=== PATIENT | female | born 1990 | race Caucasian/White ===

== ENCOUNTER 2023-07-03 11:08 | Emergency (ER) | payer OTHER ==
[2023-07-03 11:28] VITALS: TEMP 98.9
--- NOTE | 2023-07-03 11:35 | ERPHSYRPT ---
- History of Present Illness Time Seen by Provider: 07/03/23 11:34 Source: patient Exam Limitations: no limitations Patient Subjective Stated Complaint: SEVERE RIGHT SIDE ABDOMINAL PAIN, MID BACK / FLANK PAIN. Triage Nursing Assessment: Patient ambulated back to ER per self. Patient doubled over in pain to right side abdomen, mid to lower back and right side. Patient rating pain 10/10 at this time. Patient describes pain as constant. Patient unable to rest or get comfortable in bed and presents with moaning and facial grimacing. Patient reports that she starting having pain early this morning and thought she had a UTI so she took 1 dose of Bactrim DS around 0900 then vomitted around 1030. Patient reports that the pain has gotten worse. Gil alexandreablue reports that she feels like she needs to urinate but isnt having much output. Physician History: This is a 32-year-old white female patient who presents to the emergency department by private vehicle and is a patient of Dr. Bello with a complaint of severe right flank pain. Patient noticed right upper leg and right groin pain yesterday. This morning the pain was more localized in the right flank area. Patient had a prescription for Bactrim DS called in this morning and she did take a single dose of this medication. However, the right flank pain became significantly worse. Patient arrives to the emergency department holding her right flank and doubled over. She denies shortness of breath. She denies chest pain. Patient has a history of bradycardia. Patient wants to hold off on any narcotic pain medicine but will agree to Toradol. She has never had a history of renal or ureteral stones per her report. She is at mid cycle on her menstrual period Timing/Duration: yesterday, worse (Morning) Activites at Onset: none Quality: sharpness, stabbing Onset Location: right flank Pain Radiation: groin Severity of Pain-Max: moderate (Right) Severity of Pain-Current: moderate Sexual intercourse history: non-contributory Modifying Factors: Improves With: position (Patient is doubled over) Associated Symptoms: lower back pain (Right flank pain) Allergies/Adverse Reactions: No Known Drug Allergies Allergy (Unverified 07/03/23 11:14) Home Medications: Smz/Tmp Ds Tablet [Bactrim Ds Tablet] 1 tab PO BID 07/03/23 [History] Hx Influenza Vaccination/Date Given: Yes Travel Risk - International Travel Have you traveled outside of the country in past 3 weeks: No - Emerging Infectious Disease Are you exhibiting symptoms associated with any current EIDs: No - Review of Systems Constitutional: No Symptoms Eyes: No Symptoms Ears, Nose, & Throat: No Symptoms Respiratory: No Symptoms Cardiac: No Symptoms Abdominal/Gastrointestinal: No Symptoms Genitourinary Symptoms: Flank Pain (Right flank pain) Musculoskeletal: No Symptoms Skin: No Symptoms Neurological: No Symptoms Psychological: No Symptoms Endocrine: No Symptoms Hematologic/Lymphatic: No Symptoms Immunological/Allergic: No Symptoms All Other Systems: Reviewed and Negative - Past Medical History Pertinent Past Medical History: Yes Neurological History: No Pertinent History ENT History: No Pertinent History Cardiac History: Other Respiratory History: No Pertinent History Endocrine Medical History: No Pertinent History Musculoskeletal History: No Pertinent History GI Medical History: No Pertinent History History: No Pertinent History Psycho-Social History: No Pertinent History Female Reproductive Disorders: No Pertinent History Other Medical History: BRADYCARDIA - Past Surgical History Past Surgical History: Yes Neuro Surgical History: No Pertinent History Cardiac: No Pertinent History Respiratory: No Pertinent History Gastrointestinal: No Pertinent History Genitourinary: No Pertinent History Musculoskeletal: No Pertinent History Female Surgical History: Section Other Surgical History: C SECTION X 2 - 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 2ND C SECTION - Female History Hx Now: No - Social History Smoking Status: Former smoker Drug Use: none - Nursing Vital Signs Nursing Vital Signs: Initial Vital Signs Pulse Rate 46 L 07/03/23 11:15 Respiratory Rate 14 07/03/23 11:15 Blood Pressure 93/49 07/03/23 11:15 O2 Sat by Pulse Oximetry 93 L 07/03/23 11:15 Pain Scale Pain Intensity 2 - Physical Exam General Appearance: moderate distress, alert, anxiety, thin Eye Exam: PERRL/EOMI, eyes nml inspection Ears, Nose, Throat Exam: normal ENT inspection, moist mucous membranes Neck Exam: normal inspection, non-tender, supple, full range of motion Respiratory Exam: normal breath sounds, lungs clear, airway intact, No chest tenderness, No respiratory distress Cardiovascular Exam: regular rate/rhythm, normal heart sounds, normal peripheral pulses Gastrointestinal/Abdomen Exam: soft, normal bowel sounds, No tenderness Pelvic Exam: not done Rectal Exam: not done Back Exam: normal inspection, normal range of motion, CVA tenderness (Right side), No vertebral tenderness Extremity Exam: normal inspection, normal range of motion, pelvis stable Neurologic Exam: alert, oriented x 3, cooperative, sheet metal erector II-XII nml as tested, nml cerebellar function, nml station & gait, sensation nml Skin Exam: normal color, warm, dry Lymphatic Exam: No adenopathy SpO2 Interpretation: normal SpO2: 100 O2 Delivery: Room Air - Course Nursing assessment & vital signs reviewed: Yes Ordered Tests: Active Orders 24 hr Category Date Time Status IV Insertion STAT Care 07/03/23 11:35 Active ABDOMEN AND PELVIS W/0 CONTRAS [CT] Stat Exams 07/03/23 11:35 Completed AMYLASE Stat Lab 07/03/23 11:51 Completed CBC W DIFF Stat Lab 07/03/23 11:51 Completed CMP Stat Lab 07/03/23 11:51 Completed HCG QUALITATIVE, SERUM Stat Lab 07/03/23 11:51 Completed LIPASE Stat Lab 07/03/23 11:51 Completed UA W/RFX UR CULTURE Stat Lab 07/03/23 11:51 Completed Medication Summary Discontinued Medications Generic Name Dose Route Start Last Admin Trade Name Willisq PRN Reason Stop Dose Admin Sodium Chloride 1,000 mls @ 999 mls/hr 07/03/23 11:35 07/03/23 12:56 Sodium Chloride 0.9% 1000 Ml IV 07/03/23 12:35 Infused .Q1H1M STA Infusion Sodium Chloride Confirm 07/03/23 11:37 Sodium Chloride 0.9% 1000 Ml Administered 07/03/23 11:38 Dose 1,000 mls @ ud .ROUTE .STK-MED ONE Ketorolac Tromethamine 30 mg 07/03/23 11:35 07/03/23 11:39 Ketorolac Tromethamine 30 Mg/Ml Inj IV 07/03/23 11:36 30 mg STAT ONE Administration Ketorolac Tromethamine Confirm 07/03/23 11:37 Ketorolac Tromethamine 30 Mg/Ml Inj Administered 07/03/23 11:38 Dose 30 mg .ROUTE .STK-MED ONE Ondansetron HCl 4 mg 07/03/23 11:35 07/03/23 11:39 Ondansetron Hcl 4 Mg/2 Ml Vial IV 07/03/23 11:36 4 mg STAT ONE Administration Ondansetron HCl Confirm 07/03/23 11:37 Ondansetron Hcl 4 Mg/2 Ml Vial Administered 07/03/23 11:38 Dose 4 mg .ROUTE .STK-MED ONE Tamsulosin HCl 0.4 mg 07/03/23 12:56 Tamsulosin Hcl 0.4 Mg Cap PO 07/03/23 12:57 STAT ONE Tamsulosin HCl Confirm 07/03/23 13:04 Tamsulosin Hcl 0.4 Mg Cap Administered 07/03/23 13:05 Dose 0.4 mg .ROUTE .STK-MED ONE Lab/Rad Data: Laboratory Result Diagrams 07/03/23 11:51 07/03/23 11:51 Laboratory Results 07/03/23 07/03/23 07/03/23 Range/Units 11:51 11:51 11:51 WBC 9.1 (4.0-10.5) x10^3/uL RBC 4.34 (4.1-5.4) x10^6/uL Hgb 13.8 (12.0-16.0) g/dL Hct 40.9 (35-47) % MCV 94.2 (78-100) fL MCH 31.8 (26-32) pg MCHC 33.7 (32-36) g/dL RDW 11.9 (11.5-14.0) % Plt Count 247 (150-450) x10^3/uL MPV 10.3 (7.5-11.0) fL Gran % 76.0 H (36.0-66.0) % Immature Gran % (Auto) 0.3 (0.00-0.4) % Nucleat RBC Rel Count 0.0 (0.00-0.1) % Eos # (Auto) 0.02 (0-0.5) x10^3/uL Immature Gran # (Auto) 0.03 (0.00-0.03) x10^3u/L Absolute Lymphs (auto) 1.66 (1.0-4.6) x10^3/uL Absolute Monos (auto) 0.45 (0.0-1.3) x10^3/uL Absolute Nucleated RBC 0.00 (0.00-0.01) x10^3u/L Lymphocytes % 18.3 L (24.0-44.0) % Monocytes % 5.0 (0.0-12.0) % Eosinophils % 0.2 (0.00-5.0) % Basophils % 0.2 (0.0-0.4) % Absolute Granulocytes 6.91 H (1.4-6.9) x10^3/uL Basophils # 0.02 (0-0.4) x10^3/uL Sodium 139 (135-145) mmol/L Potassium 3.6 (3.5-5.1) mmol/L Chloride 104 (98-107) mmol/L Carbon Dioxide 27 (22-30) mmol/L Anion Gap 11.2 (5-15) MEQ/L BUN 12 (7-17) mg/dL Creatinine 0.75 (0.52-1.04) mg/dL Estimated GFR 108.4 ML/MIN Glucose 100 (74-106) mg/dL Calcium 9.3 (8.4-10.2) mg/dL Total Bilirubin 0.60 (0.2-1.3) mg/dL AST 27 (14-36) U/L ALT 11 (0-35) U/L Alkaline Phosphatase 45 (38-126) U/L Serum Total Protein 7.2 (6.3-8.2) g/dL Albumin 4.4 (3.5-5.0) g/dL Amylase 63 (30-110) U/L Lipase 56 (23-300) U/L Serum HCG, Qual NEGATIVE (NEGATIVE) Urine Color (Yellow) Urine Appearance (Clear) Urine pH (4.6-8.0) Ur Specific [place] (1.005-1.030) Urine Protein (Negative) Urine Glucose (UA) (Negative) mg/dL Urine Ketones (Negative) Urine Blood (Negative) Urine Nitrite (Negative) Urine Bilirubin (Negative) Urine Urobilinogen (0.2) mg/dL Ur Leukocyte Esterase (Negative) U Hyaline Cast (Auto) (0-2) /LPF Urine Microscopic RBC (0-5) /HPF Urine Microscopic WBC (0-5) /HPF Ur Epithelial Cells (None Seen) /HPF Urine Bacteria (None Seen) /HPF Urine Culture Reflexed (NO) 07/03/23 Range/Units 11:51 WBC (4.0-10.5) x10^3/uL RBC (4.1-5.4) x10^6/uL Hgb (12.0-16.0) g/dL Hct (35-47) % MCV (78-100) fL MCH (26-32) pg MCHC (32-36) g/dL RDW (11.5-14.0) % Plt Count (150-450) x10^3/uL MPV (7.5-11.0) fL Gran % (36.0-66.0) % Immature Gran % (Auto) (0.00-0.4) % Nucleat RBC Rel Count (0.00-0.1) % Eos # (Auto) (0-0.5) x10^3/uL Immature Gran # (Auto) (0.00-0.03) x10^3u/L Absolute Lymphs (auto) (1.0-4.6) x10^3/uL Absolute Monos (auto) (0.0-1.3) x10^3/uL Absolute Nucleated RBC (0.00-0.01) x10^3u/L Lymphocytes % (24.0-44.0) % Monocytes % (0.0-12.0) % Eosinophils % (0.00-5.0) % Basophils % (0.0-0.4) % Absolute Granulocytes (1.4-6.9) x10^3/uL Basophils # (0-0.4) x10^3/uL Sodium (135-145) mmol/L Potassium (3.5-5.1) mmol/L Chloride (98-107) mmol/L Carbon Dioxide (22-30) mmol/L Anion Gap (5-15) MEQ/L BUN (7-17) mg/dL Creatinine (0.52-1.04) mg/dL Estimated GFR ML/MIN Glucose (74-106) mg/dL Calcium (8.4-10.2) mg/dL Total Bilirubin (0.2-1.3) mg/dL AST (14-36) U/L ALT (0-35) U/L Alkaline Phosphatase (38-126) U/L Serum Total Protein (6.3-8.2) g/dL Albumin (3.5-5.0) g/dL Amylase (30-110) U/L Lipase (23-300) U/L Serum HCG, Qual (NEGATIVE) Urine Color Yellow (Yellow) Urine Appearance Clear (Clear) Urine pH 7.0 (4.6-8.0) Ur Specific [place] 1.025 (1.005-1.030) Urine Protein Negative (Negative) Urine Glucose (UA) Negative (Negative) mg/dL Urine Ketones Negative (Negative) Urine Blood Negative (Negative) Urine Nitrite Negative (Negative) Urine Bilirubin Negative (Negative) Urine Urobilinogen 0.2 (0.2) mg/dL Ur Leukocyte Esterase Negative (Negative) U Hyaline Cast (Auto) NONE SEEN (0-2) /LPF Urine Microscopic RBC 3-5 (0-5) /HPF Urine Microscopic WBC 0-2 (0-5) /HPF Ur Epithelial Cells Rare (None Seen) /HPF Urine Bacteria None Seen (None Seen) /HPF Urine Culture Reflexed NO (NO) - Progress Progress: improved, re-examined Air Movement: good Progress Note: 07/03/23 11:42 My medical decision making and the assignment of moderate complexity to this patient's medical issues based on review of the patient's past medical history, review the patient's medication list, review of patient drug allergy list, history of present illness and physical findings on examination. This patient's workup includes placement of intravenous line, infusion of normal saline solution, infusion of Zofran 4 mg, infusion of Toradol 30 mg, CBC, CMP, amylase, lipase, urinalysis, CT scan of the abdomen pelvis without contrast. Differential diagnosis includes muscle skeletal pain, pyelonephritis, urinary tract infection, ovarian cyst (mittelschmerz), appendicitis 07/03/23 13:06 I interpreted the patient's laboratory data results. There is no evidence of acute or emergent medical issue based on the laboratory data results. Currently, the patient is much more comfortable after receiving Toradol intravenously. She does not want any narcotic pain medicine. CT scan of the abdomen pelvis was interpreted by the radiologist and I reviewed the impression. There is a distal right ureteral calculus measuring 4 to 5 mm in diameter approximately 1 cm proximal to the UVJ. There is evidence of obstructive uropathy. Blood Culture(s) Obtained: No Antibiotics given: No Counseled pt/family regarding: lab results, diagnosis, need for follow-up, rad results Medical Desision Making - Diagnostic Testing Diagnostic test were ordered, analyzed, and reviewed by me: Yes Radiological Interpretation: Reviewed by me, Teleradiologist Report - Risk of complications The pt has a mod risk of morbidity or mortality based on: Need for prescription drug management - Departure Departure Disposition: Home Clinical Impression: Right ureteral calculus, Obstructive uropathy Condition: Stable Critical Care Time: No Referrals: LELO BELLO MD [Primary Care Provider] - Follow up/PCP as directed Additional Instructions: Drink plenty of fluids. Take your Toradol as prescribed. Take your Flomax pres cription as prescribed. Return to the emergency department if symptoms worsen. Strain your urine looking for the ureteral stone. Prescriptions: Ketorolac Trometh 10 mg Tab [TORAdol 10 MG TABLET] 10 mg PO Q6H PRN #16 tablet MDD 4 PRN Reason: Moderate To Severe Pain
[2023-07-03] MEDS ORDERED: Zofran 4 MG/2 ML VIAL ONE (11:37)
[2023-07-03] MEDS ORDERED: TORAdol 30 mg Injection ONE (11:37)
[2023-07-03] MEDS ORDERED: Sodium Chloride 0.9% 1000 ML 1,000 ML ONE (11:37)
[2023-07-03] MEDS: Sodium Chloride 0.9% 1000 ML 1,000 ML IV STA (11:38)
[2023-07-03] MEDS: Zofran 4 MG/2 ML VIAL IV ONE (11:39)
[2023-07-03] MEDS: TORAdol 30 mg Injection IV ONE (11:39)
[2023-07-03 11:52] LABS: Absolute Neutrophil Ct (ANC) 6.91 x10^3/uL (1.4-6.9); BASOPHIL % 0.2 % (0.0-0.4); Basophil (Absolute #) 0.02 x10^3/uL (0-0.4); Eosinophil % 0.2 % (0.00-5.0); Eosinophil (Absolute #) 0.02 x10^3/uL (0-0.5); Hematocrit 40.9 % (35-47); Hemoglobin 13.8 g/dL (12.0-16.0); IMMATURE GRAN # 0.03 x10^3u/L (0.00-0.03); IMMATURE GRAN % 0.3 % (0.00-0.4); Lymphocyte (Absolute #) 1.66 x10^3/uL (1.0-4.6); Lymphocytes % 18.3 % (24.0-44.0); Mean Cell Volume 94.2 fL (78-100); Mean Corpuscular Hemoglobin 31.8 pg (26-32); Mean Corpuscular Hgb Concent. 33.7 g/dL (32-36); Mean Platelet Volume 10.3 fL (7.5-11.0); Monocyte (Absolute #) 0.45 x10^3/uL (0.0-1.3); Platelet Count 247 x10^3/uL (150-450); Red Blood Count 4.34 x10^6/uL (4.1-5.4); Red Cell Distribution Width 11.9 % (11.5-14.0); White Blood Count 9.1 x10^3/uL (4.0-10.5)
[2023-07-03 12:05] LABS: HCG SERUM TEST NEGATIVE (NEGATIVE)
[2023-07-03 12:07] LABS: ALBUMIN 4.4 g/dL (3.5-5.0); ANION GAP 11.2 MEQ/L (5-15); Appearance Clear (Clear); BILIRUBIN,TOTAL 0.6 mg/dL (0.2-1.3); Bacteria None Seen /HPF (None Seen); Bilirubin Negative (Negative); Blood Negative (Negative); Calcium 9.3 mg/dL (8.4-10.2); Creatinine 1 0.75 mg/dL (0.52-1.04); EST GLOMERULAR FILTRATION RATE 108.4 ML/MIN; Epithelial Cells Rare /HPF (None Seen); Glucose, Urine Negative (Negative); Hyaline Casts NONE SEEN /LPF (0-2); Ketones Negative (Negative); Leukocyte Esterase Negative (Negative); Nitrite Negative (Negative); Potassium 3.6 mmol/L (3.5-5.1); Protein,Urine Dip Negative (Negative); Specific Gravity 1.025 (1.005-1.030); Total Protein 7.2 g/dL (6.3-8.2); Urobilinogen 0.2 mg/dL (0.2); WBC 0-2 /HPF (0-5)
[2023-07-03 12:20] LABS: ADD URINE CULTURE? NO (NO)
[2023-07-03 12:30] VITALS: BP 114/71
[2023-07-03 12:40] VITALS: RESP 18
--- NOTE | 2023-07-03 12:40 | XRAY ---
Indication: Right flank pain. Multiple contiguous axial images obtained through the abdomen and pelvis without contrast using renal stone protocol. Comparison: None Lung bases clear. Heart not enlarged. Distal right ureter demonstrates 4-5 mm calculus approximately 1 cm proximal to UVJ. Proximal right ureter is prominent up to 7-8 mm along with moderate hydronephrosis consistent with obstructive uropathy. Additional bilateral renal micro-calculi, largest left upper pole measuring 4 mm. No free fluid/air. Noncontrasted stomach and bowel loops appear nonobstructed with normal appendix. Remaining liver, gallbladder, pancreas, spleen, adrenal glands, bladder, uterus, and aorta are unremarkable for noncontrast exam. Osseous structures intact. Impression: 4-5 mm distal right ureteral calculus producing obstructive uropathy as detailed. Additional bilateral renal micro-calculi.
[2023-07-03] MEDS ORDERED: Flomax 0.4 MG ONE (13:04)
[2023-07-03] MEDS: Flomax 0.4 MG PO ONE (13:06)
[2023-07-03 13:20] VITALS: PULSE 46; O2SAT 99
== END 2023-07-03 13:21 | disposition home or self-care (01) ==
LOC: ED 11:08
DX: N13.9 Obstructive and reflux uropathy, unspecified (principal); N20.1 Calculus of ureter; R10.9 Unspecified abdominal pain
CPT/HCPCS: 36000; 36415; 74176; 80053; 81001; 82150; 83690; 84703; 85025; 96374; 96375; 99284; J1885; J2405; A9270-GY

== ENCOUNTER 2023-08-08 11:49 | Emergency (ER) | payer OTHER ==
[2023-08-08 12:03] VITALS: TEMP 98.4
[2023-08-08] MEDS ORDERED: TORAdol 30 mg Injection ONE (12:18)
[2023-08-08] MEDS ORDERED: Sodium Chloride 0.9% 1000 ML 1,000 ML ONE (12:18)
[2023-08-08] MEDS: Sodium Chloride 0.9% 1000 ML 1,000 ML IV STA (12:20)
[2023-08-08] MEDS: TORAdol 30 mg Injection IV ONE (12:21)
[2023-08-08 12:25] LABS: HCG URINE TEST NEGATIVE (NEGATIVE)
[2023-08-08 12:29] LABS: Appearance Clear (Clear); Bacteria None Seen /HPF (None Seen); Bilirubin Negative (Negative); Blood Moderate (Negative); Epithelial Cells Rare /HPF (None Seen); Glucose, Urine Negative (Negative); Hyaline Casts NONE SEEN /LPF (0-2); Ketones Negative (Negative); Leukocyte Esterase Trace (Negative); Nitrite Negative (Negative); Ph 6.5 (4.6-8.0); Protein,Urine Dip Negative (Negative); RBC >100 /HPF (0-5); Specific Gravity 1.015 (1.005-1.030); WBC 0-2 /HPF (0-5)
[2023-08-08 12:37] LABS: ADD URINE CULTURE? YES (NO)
[2023-08-08 12:38] LABS: Absolute Neutrophil Ct (ANC) 4.71 x10^3/uL (1.4-6.9); BASOPHIL % 0.4 % (0.0-0.4); Basophil (Absolute #) 0.03 x10^3/uL (0-0.4); Eosinophil % 1.1 % (0.00-5.0); Eosinophil (Absolute #) 0.08 x10^3/uL (0-0.5); Hematocrit 35.1 % (35-47); IMMATURE GRAN # 0.02 x10^3u/L (0.00-0.03); IMMATURE GRAN % 0.3 % (0.00-0.4); Lymphocyte (Absolute #) 1.91 x10^3/uL (1.0-4.6); Lymphocytes % 26.4 % (24.0-44.0); Mean Cell Volume 92.4 fL (78-100); Mean Corpuscular Hemoglobin 31.6 pg (26-32); Mean Corpuscular Hgb Concent. 34.2 g/dL (32-36); Mean Platelet Volume 10.2 fL (7.5-11.0); Monocyte (Absolute #) 0.49 x10^3/uL (0.0-1.3); Monocytes % 6.8 % (0.0-12.0); Platelet Count 211 x10^3/uL (150-450); Red Cell Distribution Width 12.1 % (11.5-14.0); White Blood Count 7.2 x10^3/uL (4.0-10.5)
[2023-08-08 12:52] LABS: ALBUMIN 4.5 g/dL (3.5-5.0); ANION GAP 11.2 MEQ/L (5-15); BILIRUBIN,TOTAL 0.4 mg/dL (0.2-1.3); Calcium 9.4 mg/dL (8.4-10.2); Creatinine 1 0.95 mg/dL (0.52-1.04); EST GLOMERULAR FILTRATION RATE 81.6 ML/MIN; Potassium 4.2 mmol/L (3.5-5.1); Total Protein 7.2 g/dL (6.3-8.2)
[2023-08-08 13:16] VITALS: RESP 14
--- NOTE | 2023-08-08 13:30 | ERPHSYRPT ---
- History of Present Illness Time Seen by Provider: 08/08/23 12:07 Historian: patient Exam Limitations: physical impairment Patient Subjective Stated Complaint: PT states "I have left flank pain. I know I have stones and thought the pain would go away but it did not." Triage Nursing Assessment: pt presented alert and oriented X 3, skin pwd. PT am bulates with an upright steady gait, able to speak in clear full sentences. Pt resting comfortably on the bed. Physician History: 32 years old female with history of kidney stones presented in the ER with complaint of left flank pain off and on for the last 5 days with progressive worsening since morning, constant, sharp with some radiation to left pelvic area, also report associated hesitancy/dysuria and increased frequency. Noted some discoloration of urine as if there is some blood in it. Reports nausea but no vomiting. No fever or chills reported. Reports having similar symptoms in the past on the right side. Allergies/Adverse Reactions: No Known Drug Allergies Allergy (Verified 08/08/23 12:03) Hx Tetanus, Diphtheria Vaccination/Date Given: Yes Hx Influenza Vaccination/Date Given: Yes Hx Pneumococcal Vaccination/Date Given: No Immunizations Up to Date: No Travel Risk - International Travel Have you traveled outside of the country in past 3 weeks: No - Emerging Infectious Disease Are you exhibiting symptoms associated with any current EIDs: No - Review of Systems Constitutional: No Symptoms Ears, Nose, & Throat: No Symptoms Respiratory: No Symptoms Cardiac: No Symptoms Abdominal/Gastrointestinal: Abdominal Pain, Nausea Genitourinary Symptoms: Dysuria, Frequency, Hematuria, Hesitancy, Flank Pain Musculoskeletal: No Symptoms Skin: No Symptoms Neurological: No Symptoms Psychological: No Symptoms Endocrine: No Symptoms Hematologic/Lymphatic: No Symptoms - Past Medical History Pertinent Past Medical History: Yes Neurological History: No Pertinent History ENT History: No Pertinent History Cardiac History: Other Respiratory History: No Pertinent History Endocrine Medical History: No Pertinent History Musculoskeletal History: No Pertinent History GI Medical History: No Pertinent History History: No Pertinent History Psycho-Social History: No Pertinent History Female Reproductive Disorders: No Pertinent History Other Medical History: BRADYCARDIA - Past Surgical History Past Surgical History: Yes Neuro Surgical History: No Pertinent History Cardiac: No Pertinent History Respiratory: No Pertinent History Gastrointestinal: No Pertinent History Genitourinary: No Pertinent History Musculoskeletal: No Pertinent History Female Surgical History: Section Other Surgical History: C SECTION X 2 - 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 2ND C SECTION - Female History Hx Last Menstrual Period: 07/09/2023 Hx Now: (unkn) - Social History Smoking Status: Former smoker Exposure to second hand smoke: No Drug Use: none - Social Determinants of Health Will the patient participate in the screening: Yes Do you worry about a steady place to live?: No Do you have any problems with any of the following?: No known problems In the past 12 months,have you had to go without utilities?: No Transportation Issues: No Has anyone in your support network made you feel unsafe?: No Have you or anyone in your house had to go without enough: No - Nursing Vital Signs Nursing Vital Signs: Initial Vital Signs Temperature 98.4 F 08/08/23 11:54 Pulse Rate 53 L 08/08/23 11:54 Respiratory Rate 20 08/08/23 11:54 Blood Pressure 106/32 08/08/23 11:54 O2 Sat by Pulse Oximetry 99 08/08/23 11:54 Pain Scale Pain Intensity 0 - Physical Exam General Appearance: no apparent distress Eye Exam: PERRL/EOMI Ears, Nose, Throat Exam: normal ENT inspection Neck Exam: normal inspection, full range of motion Respiratory Exam: normal breath sounds, lungs clear Cardiovascular Exam: normal heart sounds, bradycardia (Chronic bradycardia) Gastrointestinal/Abdomen Exam: soft, normal bowel sounds, tenderness (Left flank with positive CVA tenderness, tenderness left lower quadrant) Back Exam: normal range of motion, CVA tenderness Extremity Exam: normal inspection, normal range of motion Neurologic Exam: alert, oriented x 3, cooperative Skin Exam: normal color SpO2 Interpretation: normal SpO2: 99 O2 Delivery: Room Air Ordered Tests: Active Orders 24 hr Category Date Time Status IV Insertion STAT Care 08/08/23 12:14 Active NPO (ED) STAT Care 08/08/23 12:14 Active ABDOMEN AND PELVIS W/0 CONTRAS [CT] Stat Exams 08/08/23 12:15 Completed CBC W DIFF Stat Lab 08/08/23 12:16 Completed CMP Stat Lab 08/08/23 12:16 Completed CULTURE,URINE Stat Lab 08/08/23 12:16 Received HCG QUALITATIVE, URINE Stat Lab 08/08/23 12:17 Completed LIPASE Stat Lab 08/08/23 12:16 Completed UA W/RFX UR CULTURE Stat Lab 08/08/23 12:16 Completed Medication Summary Discontinued Medications Generic Name Dose Route Start Last Admin Trade Name Callum PRN Reason Stop Dose Admin Sodium Chloride 1,000 mls @ 999 mls/hr 08/08/23 12:14 08/08/23 13:45 Sodium Chloride 0.9% 1000 Ml IV 08/08/23 13:14 Infused .Q1H1M STA Infusion Sodium Chloride Confirm 08/08/23 12:18 Sodium Chloride 0.9% 1000 Ml Administered 08/08/23 12:19 Dose 1,000 mls @ ud .ROUTE .STK-MED ONE Ketorolac Tromethamine 30 mg 08/08/23 12:14 08/08/23 12:21 Ketorolac Tromethamine 30 Mg/Ml Inj IV 08/08/23 12:15 30 mg STAT ONE Administration Ketorolac Tromethamine Confirm 08/08/23 12:18 Ketorolac Tromethamine 30 Mg/Ml Inj Administered 08/08/23 12:19 Dose 30 mg .ROUTE .STK-MED ONE Tamsulosin HCl 0.4 mg 08/08/23 14:26 08/08/23 14:35 Tamsulosin Hcl 0.4 Mg Cap PO 08/08/23 14:27 0.4 mg ONCE STA Administration Tamsulosin HCl Confirm 08/08/23 14:33 Tamsulosin Hcl 0.4 Mg Cap Administered 08/08/23 14:34 Dose 0.4 mg .ROUTE .STK-MED ONE Lab/Rad Data: Laboratory Result Diagrams 08/08/23 12:16 08/08/23 12:16 Laboratory Results 08/08/23 08/08/23 08/08/23 Range/Units 12:17 12:16 12:16 WBC 7.2 (4.0-10.5) x10^3/uL RBC 3.80 L (4.1-5.4) x10^6/uL Hgb 12.0 (12.0-16.0) g/dL Hct 35.1 (35-47) % MCV 92.4 (78-100) fL MCH 31.6 (26-32) pg MCHC 34.2 (32-36) g/dL RDW 12.1 (11.5-14.0) % Plt Count 211 (150-450) x10^3/uL MPV 10.2 (7.5-11.0) fL Gran % 65.0 (36.0-66.0) % Immature Gran % (Auto) 0.3 (0.00-0.4) % Nucleat RBC Rel Count 0.0 (0.00-0.1) % Eos # (Auto) 0.08 (0-0.5) x10^3/uL Immature Gran # (Auto) 0.02 (0.00-0.03) x10^3u/L Absolute Lymphs (auto) 1.91 (1.0-4.6) x10^3/uL Absolute Monos (auto) 0.49 (0.0-1.3) x10^3/uL Absolute Nucleated RBC 0.00 (0.00-0.01) x10^3u/L Lymphocytes % 26.4 (24.0-44.0) % Monocytes % 6.8 (0.0-12.0) % Eosinophils % 1.1 (0.00-5.0) % Basophils % 0.4 (0.0-0.4) % Absolute Granulocytes 4.71 (1.4-6.9) x10^3/uL Basophils # 0.03 (0-0.4) x10^3/uL Sodium 138 (135-145) mmol/L Potassium 4.2 (3.5-5.1) mmol/L Chloride 107 (98-107) mmol/L Carbon Dioxide 24 (22-30) mmol/L Anion Gap 11.2 (5-15) MEQ/L BUN 15 (7-17) mg/dL Creatinine 0.95 (0.52-1.04) mg/dL Estimated GFR 81.6 ML/MIN Glucose 102 (74-106) mg/dL Calcium 9.4 (8.4-10.2) mg/dL Total Bilirubin 0.40 (0.2-1.3) mg/dL AST 25 (14-36) U/L ALT 12 (0-35) U/L Alkaline Phosphatase 38 (38-126) U/L Serum Total Protein 7.2 (6.3-8.2) g/dL Albumin 4.5 (3.5-5.0) g/dL Lipase 70 (23-300) U/L Urine Color (Yellow) Urine Appearance (Clear) Urine pH (4.6-8.0) Ur Specific [place] (1.005-1.030) Urine Protein (Negative) Urine Glucose (UA) (Negative) mg/dL Urine Ketones (Negative) Urine Blood (Negative) Urine Nitrite (Negative) Urine Bilirubin (Negative) Urine Urobilinogen (0.2) mg/dL Ur Leukocyte Esterase (Negative) U Hyaline Cast (Auto) (0-2) /LPF Urine Microscopic RBC (0-5) /HPF Urine Microscopic WBC (0-5) /HPF Ur Epithelial Cells (None Seen) /HPF Urine Bacteria (None Seen) /HPF Urine Culture Reflexed (NO) Urine HCG, Qual NEGATIVE (NEGATIVE) 08/08/23 Range/Units 12:16 WBC (4.0-10.5) x10^3/uL RBC (4.1-5.4) x10^6/uL Hgb (12.0-16.0) g/dL Hct (35-47) % MCV (78-100) fL MCH (26-32) pg MCHC (32-36) g/dL RDW (11.5-14.0) % Plt Count (150-450) x10^3/uL MPV (7.5-11.0) fL Gran % (36.0-66.0) % Immature Gran % (Auto) (0.00-0.4) % Nucleat RBC Rel Count (0.00-0.1) % Eos # (Auto) (0-0.5) x10^3/uL Immature Gran # (Auto) (0.00-0.03) x10^3u/L Absolute Lymphs (auto) (1.0-4.6) x10^3/uL Absolute Monos (auto) (0.0-1.3) x10^3/uL Absolute Nucleated RBC (0.00-0.01) x10^3u/L Lymphocytes % (24.0-44.0) % Monocytes % (0.0-12.0) % Eosinophils % (0.00-5.0) % Basophils % (0.0-0.4) % Absolute Granulocytes (1.4-6.9) x10^3/uL Basophils # (0-0.4) x10^3/uL Sodium (135-145) mmol/L Potassium (3.5-5.1) mmol/L Chloride (98-107) mmol/L Carbon Dioxide (22-30) mmol/L Anion Gap (5-15) MEQ/L BUN (7-17) mg/dL Creatinine (0.52-1.04) mg/dL Estimated GFR ML/MIN Glucose (74-106) mg/dL Calcium (8.4-10.2) mg/dL Total Bilirubin (0.2-1.3) mg/dL AST (14-36) U/L ALT (0-35) U/L Alkaline Phosphatase (38-126) U/L Serum Total Protein (6.3-8.2) g/dL Albumin (3.5-5.0) g/dL Lipase (23-300) U/L Urine Color Yellow (Yellow) Urine Appearance Clear (Clear) Urine pH 6.5 (4.6-8.0) Ur Specific [place] 1.015 (1.005-1.030) Urine Protein Negative (Negative) Urine Glucose (UA) Negative (Negative) mg/dL Urine Ketones Negative (Negative) Urine Blood Moderate A (Negative) Urine Nitrite Negative (Negative) Urine Bilirubin Negative (Negative) Urine Urobilinogen 1.0 A (0.2) mg/dL Ur Leukocyte Esterase Trace A (Negative) U Hyaline Cast (Auto) NONE SEEN (0-2) /LPF Urine Microscopic RBC >100 A (0-5) /HPF Urine Microscopic WBC 0-2 (0-5) /HPF Ur Epithelial Cells Rare (None Seen) /HPF Urine Bacteria None Seen (None Seen) /HPF Urine Culture Reflexed YES (NO) Urine HCG, Qual (NEGATIVE) - Progress Progress: improved, pain not gone completely, re-examined Progress Note: 08/08/23 14:44 32-year-old is evaluated for left flank pain with history of kidney stones in the past. She is given fluids and symptomatic treatment with Toradol, on r eevaluation feeling better but not complete resolution of pain. Workup showed normal white count, fairly unremarkable chemistries and no UTI. CT abdomen pelvis without contrast showed 5 mm old left distal ureteral stone with moderate obstruction and hydroureteronephrosis. Patient had 4-5 mm stone on the right side couple of months ago which she passed on her own. I have shared the results of workup with patient, discussed in detail transfer to facility with urology services versus going home on pain medication/Flomax and antibiotics and she wants to go home. 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 She is advised to have outpatient follow-up with primary care and urology next week. Counseled pt/family regarding: lab results, diagnosis, need for follow-up, rad results - Departure Departure Disposition: Home Clinical Impression: Ureterolithiasis Condition: Stable Critical Care Time: No Referrals: LELO BELLO MD [Primary Care Provider] - Follow up with PCP 1 day ALLIE GAMEZ [COURTESY STAFF] - Follow up/PCP as directed (Call Thursday morning for appointment for reevaluation) Instructions: Kidney Stones (DC) Additional Instructions: Take Tylenol/ibuprofen as needed for pain. Follow-up with your primary care/urology for reevaluation. Return to ER for intractable pain/vomiting/difficulty urination or if develop fever chills etc. Prescriptions: Hydrocodone/Acetaminophen [Hydrocodone-Acetamin 5-325 mg] 1 tab PO Q6HPRN PRN 3 Days #12 tablet MDD 4 PRN Reason: Pain Tamsulosin HCl 0.4 mg [Flomax 0.4 MG] 0.4 mg PO DAILY #30 cap Cefpodoxime Proxetil 200 mg [Vantin 200 mg] 200 mg PO BID 7 Days #14 tablet
--- NOTE | 2023-08-08 14:14 | XRAY ---
CLINICAL HISTORY: Left flank pain COMPARISON: None TECHNIQUE: Axial CT scan of the abdomen and pelvis was performed without IV contrast. Coronal and sagittal reconstructive images were also obtained. One of the following dose reduction techniques were utilized for this exam: Automated exposure control, adjustment of the mA and/or kV according to patient size, use of iterative reconstruction FINDINGS: There is 5 mm left distal ureteric stone of density 827 HU causing full-length hydroureter and moderate hydronephrosis and multiple tiny renal stones. The kidney is bulky, with preserved orientation and cortical thickness. The right kidney is normal in size and shape. Multiple tiny calculi noted not associated with hydronephrosis. No right ureteric stone detected. The liver is normal in size. No focal or diffuse parenchymal abnormality. The portal vein, intrahepatic biliary radicals and the bile ducts are normal. The spleen, pancreas, adrenal glands are unremarkable. The gallbladder is normal. No pericholecystic collection or radio dense calculi in the gall bladder. The ascending colon, the transverse colon, the descending colon, visualized small bowel loops are unremarkable. Unremarkable appendix. There is no evidence of significant enlargement of the mesenteric or retroperitoneal lymph nodes.The urinary bladder is unremarkable. The rectosigmoid colon is unremarkable. No evidence of pelvic lymphadenopathy. The osseous structures in the pelvis, lower rib cage and lumbar spine show no abnormality. No lytic or sclerotic bone lesions. IMPRESSION: 1. Left distal ureteric stone causing acute moderate obstruction. 2. Bilateral tiny renal stones. [facility] ER was called at [phone] at 01:04 PM [employer], 08/08/2023 and results were verbally communicated to Simon Armstrong. Electronically Signed by: Kellie Dale MD. (08/08/2023 14:10:00 EDT)
[2023-08-08] MEDS ORDERED: Flomax 0.4 MG ONE (14:33)
[2023-08-08] MEDS: Flomax 0.4 MG PO STA (14:35)
[2023-08-08 14:40] VITALS: BP 109/51; PULSE 47
[2023-08-08 14:49] VITALS: O2SAT 99
== END 2023-08-08 15:00 | disposition home or self-care (01) ==
LOC: ED 11:49
DX: N13.2 Hydronephrosis with renal and ureteral calculous obstruction (principal); R10.9 Unspecified abdominal pain; R30.0 Dysuria; R11.0 Nausea; Z79.891 Long term (current) use of opiate analgesic; Z87.442 Personal history of urinary calculi
CPT/HCPCS: 36000; 36415; 74176; 80053; 81001; 81025; 83690; 85025; 87086; 96360; 96374; 99284; J1885; A9270-GY